=== PATIENT | male | born 1990 | race Caucasian/White ===

== ENCOUNTER → 2016-10-16 | Outpatient (CLI) | payer MEDICAID ==
[2014-09-24 20:35] VITALS: BP 124/84
[~2016-10-16] MED LIST: AMOXICILLIN 25250 MG; ATIVAN0.5 MG PO; CELEXA 20MG20 MG/TAB PO; CELEXA20 MG PO; CEPHALEXIN500 M1 PO; LORAZEPAM0.5 MG PO; METOPROLOL SUCC25 MG PO; OMNICEF 300MG300 MG PO; ONDANSETRON ODT8 MG PO; PAXIL10 MG PO; PAXIL20 MG PO; PEPCID AC 10MG10 MG PO; RT ALBUTEROL CC18 GM IH; SEROQUEL XR150 MG PO; SEROQUEL50 MG PO
== END ==
LOC: LAB 10:26
DX: R00.2 Palpitations (principal); F32.2 Major depressive disorder, single episode, severe without psychotic features; L65.9 Nonscarring hair loss, unspecified; Z00.00 Encounter for general adult medical examination without abnormal findings

== ENCOUNTER → 2018-10-13 | Outpatient (CLI) | payer MEDICAID ==
[2014-09-24 20:35] VITALS: BP 124/84
[2018-10-13 14:08] LABS: EOS # 0.3 (0.04-0.40); EOS % 2.3 % (0.0-4.0); LYMPH# 2.8 (1.50-4.00); MEAN CELL VOLUME 86 fl (78-100); MEAN CORPUSCULAR HEMOGLOBIN 29 pg (27-31); MEAN CORPUSCULAR HGB CONC 34 g/dL (33-37); MEAN PLATELET VOLUME 10.2 fl (7.4-10.4); MONO # 0.9 (0.20-0.80); PLATELET COUNT 313 K/mm3 (130-400); RED BLOOD COUNT 5.46 M/mm3 (4.20-5.60); RED CELL DISTRIBUTION WIDTH 12.9 % (11.5-14.5)
[2018-10-13 14:19] LABS: ALBUMIN 4.5 g/dL (3.5-5.0)
[2018-10-13 14:20] LABS: CALCIUM 10.3 mg/dL (8.3-10.5)
[2018-10-13 14:22] LABS: TOTAL PROTEIN 7.6 g/dL (6.4-8.3)
[2018-10-13 14:24] LABS: TOTAL BILIRUBIN 0.5 mg/dL (0.2-1.2)
[2018-10-13 15:15] LABS: ERYTHROCYTE SEDIMENTATION RATE 4 mm/hr (0-15)
== END ==
LOC: LAB 13:56
PROVIDERS: Internal Medicine
DX: I10 Essential (primary) hypertension (principal); E78.2 Mixed hyperlipidemia; F32.9 Major depressive disorder, single episode, unspecified

== ENCOUNTER → 2021-12-14 | Outpatient (CLI) | payer MEDICAID ==
[2021-12-14 15:02] LABS: POTASSIUM 3.8 mmol/L (3.5-5.1)
[2021-12-14 15:03] LABS: ALBUMIN 4.4 g/dL (3.5-5.0)
[2021-12-14 15:04] LABS: CALCIUM 9.5 mg/dL (8.3-10.5)
[2021-12-14 15:05] LABS: TOTAL PROTEIN 7.2 g/dL (6.4-8.3)
[2021-12-14 15:07] LABS: TOTAL BILIRUBIN 0.8 mg/dL (0.2-1.2)
[2021-12-14 15:12] LABS: MAGNESIUM 1.81 mg/dL (1.60-2.60)
[2021-12-14 15:13] LABS: BASO # 0.05 K/mm3 (0.02-0.10); EOS # 0.18 K/mm3 (0.04-0.40); EOS % 2.2 % (0.0-4.0); HEMATOCRIT 46.3 % (42.0-52.0); LYMPH# 2.83 K/mm3 (1.50-4.00); MEAN CELL VOLUME 88 fl (78-100); MEAN CORPUSCULAR HEMOGLOBIN 31 pg (27-31); MEAN CORPUSCULAR HGB CONC 35 g/dL (33-37); MEAN PLATELET VOLUME 10.1 fl (7.4-10.4); MONO # 0.43 K/mm3 (0.20-0.80); NEU # 4.83 K/mm3 (1.40-6.50); PLATELET COUNT 263 K/mm3 (130-400); RED BLOOD COUNT 5.25 M/mm3 (4.20-5.60); RED CELL DISTRIBUTION WIDTH 12.3 % (11.5-14.5); WHITE BLOOD COUNT 8.3 K/mm3 (4.8-10.8)
== END ==
LOC: LAB 14:43
PROVIDERS: Internal Medicine
DX: I49.3 Ventricular premature depolarization (principal); R00.2 Palpitations; I10 Essential (primary) hypertension; K90.9 Intestinal malabsorption, unspecified; E78.2 Mixed hyperlipidemia

== ENCOUNTER → 2022-12-24 | Outpatient (CLI) | payer MEDICAID | LOC: RAD 14:46 | DX: M79.671 Pain in right foot (principal) ==